=== PATIENT | female | born 1940 | race Asian ===

== ENCOUNTER → 2018-02-03 | Outpatient (CLI) | payer MEDICARE, OTHER ==
[2018-02-03 13:56] LABS: BASOPHILS % (AUTO) 0.8 % (0.0-2.0); EOSINOPHILS % (AUTO) 1.5 % (1.0-6.0); HEMATOCRIT 39.3 % (36-46); HEMOGLOBIN 13.3 g/dL (12.0-16.0); LYMPHOCYTES % (AUTO) 29.8 % (22.0-44.0); MEAN CORPUSCULAR HEMOGLOBIN 30.5 pg (26.0-34.0); MEAN CORPUSCULAR HGB CONC 33.9 G/dL (31.0-37.0); MEAN CORPUSCULAR VOLUME 90 fL (80-100); MONOCYTES # (AUTO) 0.4 K/uL (0.1-1.0); MONOCYTES % (AUTO) 5.7 % (2.0-9.0); NEUTROPHILS # (AUTO) 4.2 K/uL (1.8-7.7); NEUTROPHILS % (AUTO) 62.2 % (40.0-70.0); PLATELET COUNT (AUTO) 216 K/uL (150-450); RED BLOOD CELL COUNT(AUTO) 4.36 MIL/uL (4.00-5.20); RED CELL DISTRIBUTION WIDTH 15.1 % (11.5-14.5)
[2018-02-03 14:11] LABS: ALANINE AMINOTRANSFERASE 35 U/L (12-78); ALKALINE PHOSPHATASE 88 U/L (46-116); ANION GAP 11 mmol/L (8-16); ASPARTATE AMINOTRANSFERASE 35 U/L (15-37); BILIRUBIN,TOTAL 1.3 mg/dL (0.1-1.0); CALCIUM, TOTAL 9.4 mg/dL (8.8-10.5); CARBON DIOXIDE 24 mmol/L (22-29); CHLORIDE 105 mmol/L (98-107); CHOL/HDL RATIO 2.6 (3.9-5.7); CHOLESTEROL 140 mg/dL (131-200); GLOMERULAR FILTR. RATE CALC > 60 mL/min (>60); GLUCOSE,RANDOM 94 mg/dL (70-110); HDL CHOLESTEROL 53 mg/dL (40-60); LDL CHOL (CALC.) 70 mg/dL (0-130); POTASSIUM 4.3 mmol/L (3.5-5.1); SODIUM SERUM 140 mmol/L (136-145); TOTAL PROTEIN, SERUM 8.1 g/dL (6.4-8.2); TRIGLYCERIDES 85 mg/dL (15-150); UREA NITROGEN, BLOOD 22 mg/dL (7-18)
== END | disposition home or self-care (01) ==
LOC: LABPV 11:32
PROVIDERS: ATTEND Internal Medicine Cardiovascular Disease
DX: I11.0 Hypertensive heart disease with heart failure (principal); I50.9 Heart failure, unspecified; E11.8 Type 2 diabetes mellitus with unspecified complications; E55.9 Vitamin D deficiency, unspecified

== ENCOUNTER → 2020-05-09 | Outpatient (CLI) | payer MEDICARE ==
[2020-05-09 11:34] LABS: ALANINE AMINOTRANSFERASE 21 U/L (12-78); ALBUMIN 3.6 g/dL (3.4-5.0); ALKALINE PHOSPHATASE 74 U/L (46-116); ANION GAP 7 mmol/L (8-16); ASPARTATE AMINOTRANSFERASE 23 U/L (15-37); BILIRUBIN,TOTAL 1.2 mg/dL (0.1-1.0); CALCIUM, TOTAL 9.1 mg/dL (8.8-10.5); CARBON DIOXIDE 26 mmol/L (22-29); CHLORIDE 105 mmol/L (98-107); CHOL/HDL RATIO 2.8 (3.9-5.7); CHOLESTEROL 146 mg/dL (131-200); FREE T4 (FREE THYROXINE) 1.01 ng/dL (0.76-1.46); GLUCOSE,RANDOM 91 mg/dL (70-110); HDL CHOLESTEROL 52 mg/dL (40-60); LDL CHOL (CALC.) 78 mg/dL (0-130); POTASSIUM 3.6 mmol/L (3.5-5.1); SODIUM SERUM 138 mmol/L (136-145); THYROID STIMULATING HORMONE 1.88 uIU/mL (0.36-3.74); TOTAL PROTEIN, SERUM 7.9 g/dL (6.4-8.2); TRIGLYCERIDES 79 mg/dL (15-150); UREA NITROGEN, BLOOD 18 mg/dL (7-18)
[2020-05-09 11:42] LABS: GLOMERULAR FILTR. RATE CALC > 60 mL/min (>60)
[2020-05-09 11:43] LABS: HEMOGLOBIN A1C 5.4 % (3.8-5.6)
== END | disposition home or self-care (01) ==
LOC: LABPV 09:46
PROVIDERS: ATTEND Internal Medicine Cardiovascular Disease
DX: I11.0 Hypertensive heart disease with heart failure (principal); I50.9 Heart failure, unspecified; E11.8 Type 2 diabetes mellitus with unspecified complications; E55.9 Vitamin D deficiency, unspecified; D56.5 Hemoglobin E-beta thalassemia
CPT/HCPCS: 82306; 83036; 83735; 84439; 84443

== ENCOUNTER 2021-12-04 19:04 | Emergency (ER) | payer MEDICARE, OTHER ==
[~2021-12-04] VITALS: Ht 147.3 cm; Wt 45.5 kg
[2021-12-04 19:16] VITALS: BP 150/71
[2021-12-04] MEDS ORDERED: ATOR10TA69 PO (19:27)
[2021-12-04] MEDS ORDERED: AMLO10TA55 PO (19:27)
== END 2021-12-04 23:22 | disposition home or self-care (01) ==
LOC: EMS 19:04
DX: S09.90XA Unspecified injury of head, initial encounter (principal); I10 Essential (primary) hypertension; Z79.899 Other long term (current) drug therapy; W18.39XA Other fall on same level, initial encounter; Y93.89 Activity, other specified; Y92.89 Other specified places as the place of occurrence of the external cause; Y99.8 Other external cause status
CPT/HCPCS: 70450; 70486; 72125; 99284